=== PATIENT | male | born 1990 | race Hispanic/Latino ===

== ENCOUNTER 2020-12-23 06:15 | Observation (INO) | payer BC ==
[~2020-12-23] VITALS: Ht 165.1 cm; Wt 109.0 kg
[2020-12-23] VITALS (7 sets, daily range): BP systolic 124–156; BP diastolic 87–100
[2020-12-23] MEDS ORDERED: KETOROLAC 30MG VIAL (30MG/ML) IM ONE (07:45)
[2020-12-23] MEDS ORDERED: AMOX/CLAV 875/125MG TAB PO ONE ×2 (07:45→07:57)
[2020-12-23] MEDS ORDERED: KETOROLAC 30MG VIAL (30MG/ML) ONE (07:57)
[2020-12-23] MEDS ORDERED: IOHEXOL-350 50ML VIAL IV ONE (08:39)
[2020-12-23 10:46] LABS: HEMATOCRIT 47.1 % (42-54); MEAN CORPUSCULAR HEMOGLOBIN 30.1 pg (27.0-33.0); MEAN CORPUSCULAR HGB CONC 33.8 g/dL (32.0-36.0); MEAN CORPUSCULAR VOLUME 89.2 fL (79-99); PLATELET COUNT (AUTO) 236 K/uL (130-400); RED BLOOD CELL COUNT(AUTO) 5.28 MIL/uL (4.50-6.20); RED CELL DISTRIBUTION WIDTH 13.2 % (11.0-15.5); WHITE BLOOD COUNT (AUTO) 16.2 K/uL (4.8-10.8)
[2020-12-23 11:15] LABS: BASOPHILS % (MANUAL) 1 % (0-2); EOSINOPHILS % (MANUAL) 1 % (1-6); LYMPHOCYTES % (MANUAL) 17 % (22-44); MAN.DIFF COMMENT-IMPRESSION MANUAL DIFFERENTIAL; MONOCYTES % (MANUAL) 8 % (2-9); PLATELET MORPHOLOGY COMMENT ADEQUATE; SEGMENTED NEUTROPHILS % 73 % (40-70)
[2020-12-23 11:43] LABS: ALBUMIN 4.2 g/dL (3.5-5.0); BILIRUBIN,TOTAL 0.2 mg/dL (0.2-1.0); TOTAL PROTEIN, SERUM 8.2 g/dL (6.0-8.3)
[2020-12-23] MEDS: 0.9%NACL 1000ML 1,000 ML IV SCH ×2 (11:45→21:45)
[2020-12-23] MEDS ORDERED: ACETAMINOPHEN WITH CODEINE 1 TAB TAB PO PRN (12:00)
[2020-12-23] MEDS ORDERED: 0.9%NACL 50ML IV SCH (12:00)
[2020-12-23] MEDS: ZOSYN 3.375GM +NS 50ML IV SCH ×2 (12:35→21:44)
[2020-12-23] MEDS: 0.9%NACL 50ML 50 ML IV SCH ×2 (12:35→21:44)
[2020-12-23] MEDS ORDERED: PIP/TAZ ZOSYN 3.375G 3.375 GM VIAL IVPB SCH (13:00)
[2020-12-23 14:39] LABS: AMPHET/METH SCREEN,URINE NEGATIVE (NEGATIVE); BARBITURATE SCREEN, URINE NEGATIVE (NEGATIVE); BENZODIAZEPINES SCREEN,URINE NEGATIVE (NEGATIVE); CANNABINOID SCREEN,URINE NEGATIVE (NEGATIVE); COCAINE SCREEN,URINE NEGATIVE (NEGATIVE); OPIATE SCREEN,URINE NEGATIVE (NEGATIVE); PHENCYCLIDINE SCREEN,URINE NEGATIVE (NEGATIVE)
[2020-12-23] MEDS ORDERED: CHLORDIAZEPOXIDE HCL 25 MG CAP PO PRN (15:00)
[2020-12-23] MEDS ORDERED: PHARMACY COMMUNICATION MISC PRN (15:00)
[2020-12-23] MEDS: KETOROLAC 15MG/ML VIAL (15MG/ML) IV PRN (18:49)
[2020-12-24] VITALS (24 sets, daily range): BP systolic 125–169; BP diastolic 76–105
[2020-12-24] MEDS: KETOROLAC 15MG/ML VIAL (15MG/ML) IV PRN ×2 (02:22→15:51)
[2020-12-24] MEDS: ZOSYN 3.375GM +NS 50ML IV SCH ×4 (05:23→20:46)
[2020-12-24] MEDS: 0.9%NACL 50ML 50 ML IV SCH ×3 (05:23→20:46)
[2020-12-24] MEDS: FOLIC ACID 1 MG TABLET PO SCH (08:21)
[2020-12-24] MEDS: THIAMINE HCL 100 MG/ML 2ML VIAL IM SCH (08:21)
[2020-12-24] MEDS: 0.9%NACL 1000ML 1,000 ML IV SCH ×2 (08:27→17:49)
[2020-12-24 08:41] LABS: BASOPHILS % (AUTO) 0.4 % (0.0-5.0); EOSINOPHILS % (AUTO) 1.2 % (0.0-8.0); LYMPHOCYTES % (AUTO) 25.9 % (21.0-51.0); MEAN CORPUSCULAR HEMOGLOBIN 29.5 pg (27.0-33.0); MEAN CORPUSCULAR HGB CONC 33.6 g/dL (32.0-36.0); MEAN CORPUSCULAR VOLUME 87.9 fL (79-99); MONOCYTES % (AUTO) 9.6 % (3.0-13.0); NEUTROPHILS % (AUTO) 62.7 % (40.0-77.0); PLATELET COUNT (AUTO) 200 K/uL (130-400); RED BLOOD CELL COUNT(AUTO) 4.78 MIL/uL (4.50-6.20); RED CELL DISTRIBUTION WIDTH 13.2 % (11.0-15.5); WHITE BLOOD COUNT (AUTO) 9.3 K/uL (4.8-10.8)
[2020-12-24 08:56] LABS: INR 1.03 (0.85-1.15); PROTHROMBIN TIME 11.2 SEC (9.6-11.6)
[2020-12-24 08:57] LABS: ALBUMIN 3.4 g/dL (3.5-5.0); BILIRUBIN,TOTAL 0.8 mg/dL (0.2-1.0); PARTIAL THROMBOPLASTIN TIME 26.2 SEC (26.3-35.5); POTASSIUM 3.8 mmol/L (3.5-5.1); TOTAL PROTEIN, SERUM 6.9 g/dL (6.0-8.3)
[2020-12-24] MEDS ORDERED: OXYMETAZOLINE HCL SPRAY 15 ML BOTTLE ONE (12:36)
[2020-12-24] MEDS ORDERED: DEXAMETHASONE SOD PHOSPHATE 10MG/ML 1ML VIAL ONE (12:36)
[2020-12-24] MEDS ORDERED: SUCCINYLCHOLINE 200MG/10ML SYR ONE ×2 (12:36→12:37)
[2020-12-24] MEDS ORDERED: LIDOCAINE PF 100MG/5ML (2%) SYRINGE 5ML ONE (12:36)
[2020-12-24] MEDS ORDERED: MIDAZOLAM HCL 1 MG/ML 2ML VIAL ONE (12:37)
[2020-12-24] MEDS ORDERED: PROPOFOL 10 MG/ML 20ML VIAL IV ONE ×2 (12:37→13:46)
[2020-12-24] MEDS ORDERED: ONDANSETRON 4MG INJ ONE (12:37)
[2020-12-24] MEDS ORDERED: FENTANYL CITRATE PF 50 MCG/1 ML 2ML VIAL ONE ×2 (12:37→13:21)
[2020-12-24] MEDS ORDERED: MEPERIDINE-PF 25 MG/ML SYG ONE (12:37)
[2020-12-24] MEDS ORDERED: CEFAZOLIN SODIUM 1 GM VIAL ONE ×2 (13:08→13:17)
[2020-12-24] MEDS ORDERED: LIDOCAINE HCL MPF 1% 5ML VIAL ONE (13:46)
[2020-12-24] MEDS ORDERED: KETOROLAC 30MG VIAL (30MG/ML) ONE (13:51)
[2020-12-24] MEDS ORDERED: HYDROMORPHONE 1 MG INJ ONE (13:52)
[2020-12-24] MEDS ORDERED: HYDRALAZINE 20MG/ML VIAL ONE (14:57)
[2020-12-24] MEDS ORDERED: APAP/CODEINE 120/12MG 5ML PO PRN (16:15)
[2020-12-25] MEDS: 0.9%NACL 1000ML 1,000 ML IV SCH (03:56)
[2020-12-25 04:00] VITALS: BP 113/69
[2020-12-25] MEDS: ZOSYN 3.375GM +NS 50ML IV SCH ×2 (04:48→12:30)
[2020-12-25] MEDS: 0.9%NACL 50ML 50 ML IV SCH (04:49)
[2020-12-25 05:16] LABS: BASOPHILS % (AUTO) 0.1 % (0.0-5.0); HEMATOCRIT 39.3 % (42-54); LYMPHOCYTES % (AUTO) 10.6 % (21.0-51.0); MEAN CORPUSCULAR HEMOGLOBIN 30.6 pg (27.0-33.0); MEAN CORPUSCULAR HGB CONC 33.8 g/dL (32.0-36.0); MEAN CORPUSCULAR VOLUME 90.3 fL (79-99); MONOCYTES % (AUTO) 6.7 % (3.0-13.0); NEUTROPHILS % (AUTO) 82.3 % (40.0-77.0); PLATELET COUNT (AUTO) 183 K/uL (130-400); RED BLOOD CELL COUNT(AUTO) 4.35 MIL/uL (4.50-6.20); RED CELL DISTRIBUTION WIDTH 13.3 % (11.0-15.5); WHITE BLOOD COUNT (AUTO) 14.3 K/uL (4.8-10.8)
[2020-12-25 05:53] LABS: ALBUMIN 3.4 g/dL (3.5-5.0); BILIRUBIN,TOTAL 0.6 mg/dL (0.2-1.0); CREATININE 0.9 mg/dL (0.5-1.5); TOTAL PROTEIN, SERUM 7.1 g/dL (6.0-8.3)
[2020-12-25 07:32] VITALS: BP 117/77
[2020-12-25] MEDS: FOLIC ACID 1 MG TABLET PO SCH (09:00)
[2020-12-25] MEDS: THIAMINE HCL 100 MG/ML 2ML VIAL IM SCH (09:00)
[2020-12-25 11:58] VITALS: BP 125/79
[2020-12-25] MEDS ORDERED: 0.9%NACL 50ML 50 ML IV SCH (13:00)
[2020-12-25] MEDS ORDERED: ACET5ELI PO (14:25)
[2020-12-25] MEDS ORDERED: AUGM2505L PO (14:25)
[2020-12-25 15:59] VITALS: BP 122/81
== END 2020-12-25 17:00 | disposition home or self-care (01) ==
LOC: EDH 06:15 → INTOOBSV 11:42 → EDHIP 11:42 → 3BH 13:04
PROVIDERS: ADMIT Internal Medicine; ATTEND Internal Medicine
DX: S02.652A Fracture of angle of left mandible, initial encounter for closed fracture (principal); R65.10 Systemic inflammatory response syndrome (SIRS) of non-infectious origin without acute organ dysfunction; D72.829 Elevated white blood cell count, unspecified; Z82.49 Family history of ischemic heart disease and other diseases of the circulatory system; Z83.3 Family history of diabetes mellitus; X58.XXXA Exposure to other specified factors, initial encounter; Y92.89 Other specified places as the place of occurrence of the external cause; Y93.89 Activity, other specified; Y99.8 Other external cause status
CPT/HCPCS: 20692; 21465; 36415 ×3; 70450; 70487; 80053 ×3; 80305; 82948; 83605; 83735; 84145; 85025 ×3; 85610; 85730; 86850; 86900; 86901; 92610; 96361 ×3; 96365; 96366 ×3; 96372 ×3; 96375; 96376; 99285; A4215; A4221; A4222; A4223; A4663; A4930 ×2; C1713 ×3; C1776 ×2; G0378 ×51; J0330 ×2; J0360; J0690 ×2; J1100; J1170; J1885 ×6; J2001; J2175; J2250; J2405; J2543 ×8; J2704 ×2; J3010 ×2; J3411 ×2; J3490; J7030 ×2; J7120; Q9967